=== PATIENT | male | born 1950 | race Caucasian/White ===

== ENCOUNTER 2022-02-18 14:19 | Emergency (ER) | payer MEDICARE ==
[2022-02-18] MEDS ORDERED: Lidocaine 1% w/Epinephrine 1:100K 20 ML VIAL ONE (14:34)
[2022-02-18] MEDS ORDERED: Bacitracin 1 PK ONE (15:20)
[2022-02-18] MEDS ORDERED: Cephalexin 500 MG CAP ONE (15:20)
== END 2022-02-18 15:35 | disposition home or self-care (01) ==
LOC: MADERS 14:19
DX: S51.812A Laceration without foreign body of left forearm, initial encounter (principal); F17.220 Nicotine dependence, chewing tobacco, uncomplicated; W26.0XXA Contact with knife, initial encounter
CPT/HCPCS: 12002